=== PATIENT | male | born 1965 | race Caucasian/White ===

== ENCOUNTER 2019-07-26 20:49 | Emergency (ER) | payer OTHER ==
[~2019-07-26] VITALS: Ht 175.3 cm; Wt 90.7 kg
[2019-07-26] MEDS ORDERED: LISINOPRIL2.5 MG PO (20:57)
[2019-07-26] MEDS ORDERED: NORVASC 2.5 MG2.5 M1 PO (20:58)
[2019-07-26] MEDS ORDERED: ANUSOL-HC30 GM TOP ×2 (21:24→21:26)
[2019-07-26] MEDS ORDERED: NORCO 5-325 TA1 EAC1 PO (21:26)
[2019-07-26 21:34] VITALS: BP 125/87
== END 2019-07-26 21:36 | disposition home or self-care (01) ==
LOC: M.ERS 20:49
DX: K64.4 Residual hemorrhoidal skin tags (principal); Z90.49 Acquired absence of other specified parts of digestive tract

== ENCOUNTER 2020-02-18 13:03 | Emergency (ER) | payer MEDICAID ==
[~2020-02-18] VITALS: Ht 175.3 cm; Wt 92.1 kg
[~2020-02-18 13:03] MED LIST: ANUSOL-HC30 GM TOP; LISINOPRIL2.5 MG PO; NORCO 5-325 TA1 EAC1 PO; NORVASC 2.5 MG2.5 M1 PO
[2020-02-18] MEDS ORDERED: VIVITROL380 MG IM (13:14)
[2020-02-18 13:25] LABS: URINE BILIRUBIN NEGATIVE (Negative); URINE BLOOD NEGATIVE (Negative); URINE CLARITY CLEAR; URINE COLOR YELLOW; URINE GLUCOSE-RANDOM NEGATIVE (Negative); URINE KETONES NEGATIVE (Negative); URINE LEUKOCYTES-REFLEX NEGATIVE (Negative); URINE NITRITE-REFLEX NEGATIVE (Negative); URINE PROTEIN NEGATIVE (Negative); URINE UROBILINOGEN 0.2 E.U./dl (0.2-1.0)
[2020-02-18 13:32] LABS: AMP/METHAMP Negative (Negative); BARBITURATES Negative (Negative); BENZODIAZEPINES POSITIVE (Negative); COCAINE Negative (Negative); METHADONE Negative (Negative); OPIATES Negative (Negative); PCP Negative (Negative); THC Negative (Negative)
[2020-02-18 13:56] LABS: ABSOLUTE MONOCYTES 0.4 thou/uL (0.0-1.2); ABSOLUTE NEUTROPHILS 6.3 thou/uL (1.6-8.1); BASOPHILS 0.5 %; EOSINOPHILS 0.2 %; HEMATOCRIT 45.1 % (42.0-52.0); HEMOGLOBIN 15.8 gm/dL (14.0-18.0); LYMPHOCYTES 12.8 %; MCH 32.4 pg (26.0-34.0); MCHC 35.1 g/dL (28.0-37.0); MCV 92.2 fL (80.0-100.0); MONOCYTES 5.2 %; MPV 6.8 fl. (7.2-11.1); NUCLEATED RBCS 0 /100WBC; PLATELET COUNT* 242 thou/uL (150-400); POLYS 81.3 %; RBC 4.89 mil/uL (4.50-6.00); RDW-CV 14.5 % (10.5-14.5); WBC 7.7 thou/uL (4.0-11.0)
[2020-02-18 14:04] LABS: CALCIUM 9.1 mg/dL (8.5-10.1); CREATININE 1.4 mg/dL (0.6-1.3); POTASSIUM 4.3 mmol/L (3.5-5.1)
[2020-02-18 14:08] LABS: ALBUMIN 4.5 g/dL (3.4-5.0); TOTAL BILIRUBIN 2.2 mg/dL (<0.1-1.0); TOTAL PROTEIN 7.7 g/dL (6.4-8.2)
[2020-02-18] MEDS ORDERED: PHENERGAN 25 MG25 M1 PO (14:51)
[2020-02-18] MEDS ORDERED: PROMS25 WY RECTAL (14:51)
[2020-02-18] MEDS ORDERED: HYDROXYZINE HCL25 M2 PO (14:53)
[2020-02-18 15:35] VITALS: BP 173/94
--- NOTE | 2020-02-18 16:59 | EKG ---
[place] [address] ELECTROCARDIOGRAM REPORT Name: VALNandiniMAHESH Room: [facility]#: [id number] Admission: 02/18/20 Attend Phys: Discharge: 02/18/20 Date of : 69 Date of Service: 02/18/20 1332 Report #: [id number] THIS REPORT FOR: //name// [facility] ED Test Date: 2020-02-18 Test Time: 13:32:44 Pat Name: MAHESH TOLENTINO Department: Room: Gender: Shoe Salesperson: zurdo : 1965 Requested By: Melody Barkley Order Number: [id number] MD: Tawanda Bean Measurements Intervals [place] Rate: 63 P: 36 [place]: 168 QRS: 49 QRSD: 102 T: 39 QT: 432 QTc: 443 Interpretive Statements Sinus rhythm No previous ECG available for comparison Electronically Signed On 02-18-2020 16:57:22 CDT by Tawanda Bean [email or web address] <ELECTRONICALLY SIGNED> By: Tawanda Bean MD, [facility] 02/18/20 1657 D: 05/1331 31 Tawanda Bean MD, FACC /EPI
== END 2020-02-18 15:35 | disposition home or self-care (01) ==
LOC: M.ERS 13:03
PROVIDERS: Nurse Practitioner Family
DX: E86.0 Dehydration (principal); F19.10 Other psychoactive substance abuse, uncomplicated; F41.9 Anxiety disorder, unspecified; R11.2 Nausea with vomiting, unspecified; Z90.49 Acquired absence of other specified parts of digestive tract

== ENCOUNTER 2021-08-12 13:07 | Emergency (ER) | payer MEDICAID ==
[~2021-08-12] VITALS: Ht 172.7 cm; Wt 97.5 kg
[~2021-08-12 13:07] MED LIST changes: +HYDROXYZINE HCL25 M2 PO; +PHENERGAN 25 MG25 M1 PO; +PROMS25 WY RECTAL; +VIVITROL380 MG IM
[2021-08-12] MEDS ORDERED: HYDROCODON-ACE1 EAC7 PO (13:33)
[2021-08-12] MEDS ORDERED: IBUPROFEN 800800 M1 PO (13:33)
[2021-08-12] MEDS ORDERED: FLEXERIL PO (13:33)
[2021-08-12] MEDS ORDERED: PREDNISONE50 MG PO (13:33)
[2021-08-12 13:44] VITALS: BP 174/104
== END 2021-08-12 13:44 | disposition home or self-care (01) ==
LOC: M.ERS 13:07
DX: M54.59 Other low back pain (principal); Z90.49 Acquired absence of other specified parts of digestive tract; Z79.899 Other long term (current) drug therapy